=== PATIENT | female | born 1980 | race Caucasian/White ===

== ENCOUNTER 2023-01-04 10:02 | Outpatient (CLI) | payer OTHER ==
[~2023-01-04 10:02] MED LIST: AMOX1TAB12; MOTRIN IB200 MG; NABUMETONE750 MG PO; PREDNISONE5 MG/DOSE- PO
== END 2023-01-04 10:07 | disposition home or self-care (01) ==
LOC: EDBD 10:02 → SONOGRAMA 10:02
PROVIDERS: ATTEND Pathology Anatomic Pathology & Clinical Pathology
DX: R22.1 Localized swelling, mass and lump, neck (principal)

== ENCOUNTER 2023-01-18 09:48 | Day surgery (SDC) | payer OTHER ==
[2023-01-15 12:59] LABS: PH,URINE 6.5 (5.0-8.0); URINE APPEARANCE Clear; URINE BILIRRUBIN Negative (NEGATIVE); URINE BLOOD Moderate; URINE COLOR Yellow; URINE GLUCOSE Negative (NEGATIVE); URINE LEUKOCYTE Trace; URINE NITRATE Negative; URINE PROTEIN Negative (NEGATIVE); URINE UROBILINOGEN 0.2 E.U./dl
[2023-01-15 13:02] LABS: HEMATOCRIT 32.2 % (36.0-45.00); HEMOGLOBIN 10.1 g/dL (12.0-15.00); MEAN CELL VOLUME 73.4 fL (80.00-100.00); MEAN CORPUSCULAR HGB CONC 31.4 g/dl (32.0-36.0); PLATELET COUNT 304 K/uL (150-450); RED BLOOD COUNT 4.38 M/uL (4.00-6.00); RED CELL DISTRIBUTION WIDTH 17.1 % (11.5-14.5); URINE BACTERIA 41.5 uL (0.0-1933); URINE EPITHELIAL CELLS 15.7 uL (0.0-38.8); URINE RBC 443.5 uL (0.0-20.8)
[2023-01-15 13:41] LABS: INR 1.01; PARTIAL THROMBOPLASTIN TIME 28.6 SECONDS (22.0-34.0); PROTHROMBIN TIME 10.6 SECONDS (9.0-11.5)
[2023-01-15 14:11] LABS: ALBUMIN 3.9 gm/dL (3.4-5.0); BILIRUBIN TOTAL 0.43 mg/dL (0.3-1.2); CALCIUM 9.3 mg/dL (8.5-10.1); CREATININE SERUM 0.85 mg/dL (0.55-1.02); GFR 72.66; GLOBULINA 3.7 G/DL (2.4-3.5); POTASSIUM 4.67 mEq/L (3.5-5.1); TOTAL PROTEIN 7.6 gm/dL (6.4-8.2)
== END 2023-01-18 17:50 | disposition home or self-care (01) ==
LOC: CIR.AMB 09:48 → EDBD 11:15 → CIR.AMB 17:50
PROVIDERS: ATTEND Otolaryngology
DX: D14.1 Benign neoplasm of larynx (principal); R49.0 Dysphonia; Z20.822 Contact with and (suspected) exposure to COVID-19

== ENCOUNTER 2023-05-13 09:18 | Outpatient (CLI) | payer OTHER | END 2023-05-13 09:24 | disposition home or self-care (01) | LOC: SONOGRAMA 09:18 | PROVIDERS: ATTEND Pathology Anatomic Pathology & Clinical Pathology | DX: R59.0 Localized enlarged lymph nodes (principal); D11.0 Benign neoplasm of parotid gland ==